=== PATIENT | male | born 1960 | race Caucasian/White ===

== ENCOUNTER → 2023-09-09 | Outpatient (CLI) | payer BC ==
--- NOTE | 2023-09-09 11:35 | CA ---
Stress Echo Report Ed Mejia Age: 63 Gender: M : 1960 Exam Date: 09/09/2023 09:36 Exam Location: [facility] Ht (in): 72 Wt (lb): 210 Ordering Physician: Darrion Diallo MD Referring Physician: Yoel BALL Bone Crusher: Nina Dorsey [facility] Technologist Procedure CPT: Indication: R94.31 ABNORMAL EKG ICD-9 Codes: Rhythm: Patient History: HTN Cardiac Medications: AMLOCLIPINE BENZAPRIL, SILCLEIRAFIL, CENTRUM SILVER, AND VIT C Medications in past 24 hours: Contrast: Stress Results Protocol: Jaime Total dose(mL): Exercise Duration (min:sec): Max ST Depression (mm): Angina Score: Vang Score: METS: 8.7 Resting HR: 78 Resting BP: 145 / 79 Peak HR: 148 Peak BP: 187 / 72 Max Predicted HR: 159 93 % Max Predicted HR Target HR: 135 Double Product: [id number] Stress Summary: The patient's target heart rate was achieved BP Response: Reason for Termination: Reached target heart rate or work-load Cardiac Symptoms: ECG Analysis Resting ECG: Normal sinus rhythm, normal ECG Stress ECG: No abnormal ST/T wave changes with exercise Arrhythmia: None Echo Analysis Resting Echo: Normal resting echocardiogram. Peak Echo Analysis: No evidence of segmental wall motion abnormalities MEASUREMENTS (Male/Female) Normal Values CONCLUSIONS 1. Average exercise tolerance with normal electrocardiographic response to exercise 2. Normal stress echocardiogram with no evidence of stress- induced ischemia. Dr. Nallely Sadler MD (Electronically Signed) Final Date: 09 September 2023 11:34
--- NOTE | 2023-09-09 11:36 | CA ---
Transthoracic Echo Report Name: Ed Mejia Age: 63 Gender: M : 1960 Exam Date: 09/09/2023 08:35 Exam Location: [facility] Ht (in): 72 Wt (lb): 210 Ordering Physician: Darrion Diallo MD Attending/Referring Phys: Yoel BALL Java Portal Developer Nina Dorsey [facility] Procedure CPT: Indications: R94.31 ABNORMAL EKG Cardiac Hx: Technical Quality: Fair Contrast 1: Total Dose (mL): Contrast 2: Total Dose (mL): MEASUREMENTS (Male / Female) Normal Values 2D ECHO LV Diastolic Diameter PLAX 4.8 cm 4.2 - 5.9 / 3.9 - 5.3 cm LV Systolic Diameter PLAX 3.3 cm IVS Diastolic Thickness 0.9 cm 0.6 - 1.0 / 0.6 - 0.9 cm LVPW Diastolic Thickness 0.9 cm 0.6 - 1.0 / 0.6 - 0.9 cm LV Relative Wall Thickness 0.4 LVOT Diameter 2.1 cm Ascending Aorta Diameter 3.5 cm M-MODE Aortic Root Diameter MM 3.1 cm LA Systolic Diameter MM 4.1 cm LA Ao Ratio MM 1.3 AV Cusp Separation MM 2.4 cm DOPPLER AV Peak Velocity 138.4 cm/s AV Peak Gradient 7.7 mmHg AV Mean Velocity 94.0 cm/s AV Mean Gradient 3.9 mmHg AV Velocity Time Integral 26.0 cm LVOT Peak Velocity 109.9 cm/s LVOT Peak Gradient 4.8 mmHg LVOT Velocity Time Integral 22.4 cm LVOT Stroke Volume 75.1 cm??? LVOT Stroke Volume Index 34.5 ml/m??? LVOT Cardiac Index 2639.6 cm???/min???m??? AV Area Cont Eq vti 2.9 cm??? AV Area Cont Eq pk 2.7 cm??? Mitral E Point Velocity 75.1 cm/s Mitral A Point Velocity 88.2 cm/s Mitral E to A Ratio 0.9 MV Deceleration Time 145.2 ms LV E' Lateral Velocity 11.1 cm/s Mitral E to LV E' Lateral Ratio 6.8 LV E' Septal Velocity 9.1 cm/s Mitral E to LV E' Septal Ratio 8.2 TR Peak Velocity 257.9 cm/s TR Peak Gradient 26.6 mmHg Right Atrial Pressure 8.0 mmHg Pulmonary Artery Systolic Pressu 34.6 mmHg Right Ventricular Systolic Press 34.6 mmHg FINDINGS Left Ventricle Left ventricular wall thickness normal. Left ventricular cavity size normal. Normal left ventricular systolic function with no obvious regional wall motion abnormalities. Left ventricular ejection fraction is estimated at 55-60%. Right Ventricle Normal right ventricular size. Right Atrium Normal right atrial size. Left Atrium Normal left atrial size. Mitral Valve Mitral valve thickened. Mild mitral regurgitation. Aortic Valve Trileaflet aortic valve. Aortic valve sclerosis. No aortic regurgitation. Tricuspid Valve Structurally normal tricuspid valve. Trace tricuspid regurgitation. Pulmonic Valve Pulmonic valve not well visualized. Pericardium No pericardial effusion. Aorta Normal size aortic root and proximal ascending aorta. CONCLUSIONS 1. Normal left ventricle size and systolic function 2. Mild mitral regurgitation Previewed by: Dr. Nallely Sadler MD (Electronically Signed) Final Date: 09 September 2023 11:36
== END | disposition home or self-care (01) ==
LOC: RADECHMAIN 08:01
PROVIDERS: ATTEND Family Medicine
DX: I34.0 Nonrheumatic mitral (valve) insufficiency (principal); R94.31 Abnormal electrocardiogram [ECG] [EKG]
CPT/HCPCS: 93306; 93351

== ENCOUNTER 2024-04-21 10:00 | Day surgery (SDC) | payer BC ==
[2024-04-21 11:11] VITALS: RESP 16; TEMP 98.1
[2024-04-21] MEDS: IV FLUID CONTINUATION 1,000 ML IV ONE (11:18)
[2024-04-21] MEDS: LACTATED RINGERS 1,000 ML IV SCH (11:19)
[2024-04-21] MEDS ORDERED: PROPOFOL 10 MG/ML 20 ML VIAL IV ONE (11:45)
--- NOTE | 2024-04-21 11:53 | P.GSHP ---
History of Present Illness H&P Date: 04/21/24 Chief Complaint: Colon cancer screening 63-year-old male here for colonoscopy. He has not had one for 10 years or so. No bowel complaints. No family history of colon cancer. Past Medical History Past Medical History: Hypertension History of Any Multi-Drug Resistant Organisms: None Reported Additional Past Surgical History / Comment(s): colonoscopy 8 yrs ago Past Anesthesia/Blood Transfusion Reactions: No Reported Reaction Additional Past Anesthesia/Blood Transfusion Reaction / Comment(s): no hx. blood transfusion Smoking Status: Never smoker Medications and Allergies Home Medications Medication Instructions Recorded Confirmed Type amLODIPine BESYLATE/BENAZEPRIL 1 cap PO DAILY 04/17/24 04/21/24 History [amLODIPine BESYLATE/BENAZEPRIL 10-40 mg] Allergies Allergy/AdvReac Type Severity Reaction Status Date / Time No Known Allergies Allergy Verified 04/21/24 11:02 Surgical - Exam Vital Signs Temp Pulse Resp BP Pulse Ox 98.1 F 90 16 137/77 98 04/21/24 11:09 04/21/24 11:09 04/21/24 11:09 04/21/24 11:09 04/21/24 11:09 Physical exam: General: Well-developed, well-nourished HEENT: Normocephalic, sclerae nonicteric Abdomen: Nontender, nondistended Extremities: No edema Neuro: Alert and oriented Assessment and Plan (1) Colon cancer screening Narrative/Plan: Will proceed with colonoscopy at this time. Current Visit: Yes Status: Acute Code(s): Z12.11 - ENCOUNTER FOR SCREENING FOR MALIGNANT NEOPLASM OF COLON SNOMED Code(s): 912249741
--- NOTE | 2024-04-21 12:04 | P.PCN ---
Date of Procedure: 04/21/24 Procedure(s) Performed: PREOPERATIVE DIAGNOSIS: Colon cancer screening POSTOPERATIVE DIAGNOSIS: Descending colon polyp, diverticulosis PROCEDURE: Colonoscopy with snare polypectomy ANESTHESIA: MAC SURGEON: Rigo Wadsworth M.D. SPECIMENS: Polyp ENDOSCOPIC PROCEDURE: The patient was placed on the endoscopy table in the left decubitus position. The Olympus colonoscope was inserted into the anus and passed under direct visualization to the base of the cecum. The appendiceal orifice was visualized. From that point the scope was slowly withdrawn inspecting all surfaces carefully. There were no neoplastic inflammatory or polypoid lesions throughout the cecum, ascending, and transverse colon. In the descending colon a small polyp was seen and removed using the snare with cautery technique. The remainder of the descending sigmoid and rectum was normal. The patient had mild scattered diverticulosis. The prep was slightly suboptimal. Digital rectal examination was normal. The patient was taken to the recovery room in stable condition per anesthesia guidelines. RECOMMENDATIONS: Await biopsy results. Will contact patient with timing of next colonoscopy.
[2024-04-21 12:07] VITALS: PULSE 81
[2024-04-21 12:24] VITALS: BP 119/74
== END 2024-04-21 12:38 | disposition home or self-care (01) ==
LOC: ORWHC2ENDO 10:00
PROVIDERS: ATTEND Surgery
DX: Z12.11 Encounter for screening for malignant neoplasm of colon (principal); D12.4 Benign neoplasm of descending colon; K57.30 Diverticulosis of large intestine without perforation or abscess without bleeding; I10 Essential (primary) hypertension; Z79.899 Other long term (current) drug therapy
CPT/HCPCS: 45385; J2704; 88305